=== PATIENT | female | born 1945 | race Caucasian/White ===

== ENCOUNTER → 2017-10-08 01:59 | Outpatient (CLI) | payer MEDICARE, SELFPAY ==
[2017-10-08 11:04] LABS: Abs Immature Grans 0.01 k/cumm (0.0-0.09); Absolute Basophil Count 0.03 k/cumm (0.0-0.2); Absolute Eosinophil Count 0.05 k/cumm (0.0-0.7); Absolute Lymphocyte Count 1.39 k/cumm (1.2-3.4); Absolute Monocyte Count 0.36 k/cumm (0.11-0.7); Absolute Neutrophil Count 4.27 k/cumm (1.2-6.7); Basophils % 0.5; Eosinophils % 0.8; HCT 42.7 % (36.0-46.0); HGB 13.9 g/dL (12.0-15.5); Immature Grans % 0.2; Lymphocytes % 22.7; Mean Corp. HGB Concentration 32.6 g/dL (32.0-36.0); Mean Corpuscular Volume 92.2 fL (80-95); Mean Platelet Volume 9.1 fL (8.0-11.0); Monocytes % 5.9; Neutrophils % 69.9; Platelet Count 223 x1000/uL (130-400); RBC 4.63 m/cumm (4.00-5.20); RBC Distribution Width 13.9 % (11.7-14.6); White Blood Cell Count 6.11 k/cumm (4.4-10.8)
[2017-10-08 11:15] LABS: ALT 27 U/L (12-78); AST 29 U/L (15-37); Albumin 3.6 g/dL (3.4-5.0); Alkaline Phosphatase 94 U/L (46-116); Anion Gap 10.1 mmol/L (3-11); BUN 15 mg/dL (7-18); Bilirubin, Total 0.4 mg/dL (0.2-1.0); CO2 26.9 mmol/L (21.0-32.0); CREATININE 0.87 mg/dL (0.55-1.02); Calcium 9.3 mg/dL (8.5-10.1); Chloride 102 mmol/L (98-107); Glucose 125 mg/dL (70-100); Potassium 3.9 mmol/L (3.5-5.1); Sodium 139 mmol/L (136-145); Total Protein 7.6 g/dL (6.4-8.2)
== END ==
PROVIDERS: PCP Nurse Practitioner; Visit Provider Internal Medicine Medical Oncology
DX: C50.412 Malignant neoplasm of upper-outer quadrant of left female breast (principal); Z17.0 Estrogen receptor positive status [ER+]
CPT/HCPCS: 36415; 80053; 85025

== ENCOUNTER 2018-09-17 09:27 | Outpatient (REF) | payer MEDICARE, SELFPAY ==
[2018-09-17 12:46] LABS: HCT 41.9 % (36.0-46.0); HGB 13.4 g/dL (12.0-15.5); Mean Corpuscular Hemoglobin 29.7 pg (27.0-33.0); Mean Corpuscular Volume 92.9 fL (80-95); Platelet Count 207 x1000/uL (130-400); RBC 4.51 m/cumm (4.00-5.20); RBC Distribution Width 14.1 % (11.7-14.6)
[2018-09-17 13:17] LABS: ALT 29 U/L (12-78); AST 21 U/L (15-37); Albumin 3.5 g/dL (3.4-5.0); Alkaline Phosphatase 99 U/L (46-116); Anion Gap 13.1 mmol/L (3-11); BUN 12 mg/dL (7-18); Bilirubin, Total 0.4 mg/dL (0.2-1.0); CO2 23.9 mmol/L (21.0-32.0); CREATININE 0.84 mg/dL (0.55-1.02); Calcium 9.2 mg/dL (8.5-10.1); Calculated LDL 46 mg/dL; Chloride 104 mmol/L (98-107); Cholesterol 117 mg/dL (50-200); Glucose 206 mg/dL (70-100); HDL Cholesterol 40 mg/dL (40-60); Potassium 4.2 mmol/L (3.5-5.1); Sodium 141 mmol/L (136-145); TSH (W/Ref FT4) 3.06 uIU/mL (0.36-3.74); Total Protein 6.9 g/dL (6.4-8.2); Triglyceride 158 mg/dL (30-150)
== END 2018-09-17 09:47 ==
LOC: NCHCN 09:27
PROVIDERS: PCP Nurse Practitioner; Visit Provider Nurse Practitioner
DX: E11.9 Type 2 diabetes mellitus without complications (principal); E78.5 Hyperlipidemia, unspecified; I10 Essential (primary) hypertension; E03.9 Hypothyroidism, unspecified; Z85.3 Personal history of malignant neoplasm of breast
CPT/HCPCS: 80053; 80061; 83721; 85027; 84443

== ENCOUNTER 2018-10-30 01:49 | Outpatient (CLI) | payer MEDICARE, SELFPAY ==
[2018-10-30 10:48] LABS: Abs Immature Grans 0.03 k/cumm (0.0-0.09); Absolute Basophil Count 0.02 k/cumm (0.0-0.2); Absolute Lymphocyte Count 1.31 k/cumm (1.2-3.4); Absolute Monocyte Count 0.41 k/cumm (0.11-0.7); Absolute Neutrophil Count 6.15 k/cumm (1.2-6.7); Basophils % 0.2; Eosinophils % 1.2; HCT 41.8 % (36.0-46.0); HGB 13.4 g/dL (12.0-15.5); Immature Grans % 0.4; Lymphocytes % 16.3; Mean Corp. HGB Concentration 32.1 g/dL (32.0-36.0); Mean Corpuscular Hemoglobin 29.5 pg (27.0-33.0); Mean Corpuscular Volume 91.9 fL (80-95); Mean Platelet Volume 9.2 fL (8.0-11.0); Monocytes % 5.1; Neutrophils % 76.8; Platelet Count 212 x1000/uL (130-400); RBC 4.55 m/cumm (4.00-5.20); RBC Distribution Width 14.3 % (11.7-14.6); White Blood Cell Count 8.02 k/cumm (4.4-10.8)
[2018-10-30 11:06] LABS: ALT 23 U/L (14-59); AST 21 U/L (15-37); Albumin 3.5 g/dL (3.4-5.0); Alkaline Phosphatase 94 U/L (46-116); BUN 18 mg/dL (7-18); Bilirubin, Total 0.4 mg/dL (0.2-1.0); CREATININE 0.81 mg/dL (0.55-1.02); Calcium 9.3 mg/dL (8.5-10.1); Chloride 102 mmol/L (98-107); Glucose 153 mg/dL (70-100); Potassium 3.9 mmol/L (3.5-5.1); Sodium 137 mmol/L (136-145); Total Protein 7.6 g/dL (6.4-8.2)
== END 2018-10-30 02:09 ==
PROVIDERS: PCP Nurse Practitioner; Visit Provider Internal Medicine Hematology & Oncology
DX: C50.412 Malignant neoplasm of upper-outer quadrant of left female breast (principal); Z17.0 Estrogen receptor positive status [ER+]
CPT/HCPCS: 36415; 80053; 85025

== ENCOUNTER 2018-12-05 00:47 | Outpatient (CLI) | payer MEDICARE, SELFPAY ==
--- NOTE | 2018-12-05 13:27 | DI.DEXA_ITS ---
EXAM: XR DEXA BONE DENSITY W/WO EVERARDO INDICATION: OSTEOPOROSIS WITHOUT FX, M81.0, ON AI. COMPARISON: Previous examination of June 2015 TECHNIQUE: 2D digital imaging was performed. FINDINGS: DEXA scan was performed according to the usual protocol. Findings for left hip scanning are a T-scor e of -3.2 with left femoral neck T-score of -4.1. Previous examination of June 2015 showed left hip T -score of -1.8. Lumbar spine scanning shows T-score of -1.9, previous examination of June 2015 showed lumbar T-score of -1.6. Left forearm scanning shows T-score of -4.5. Previous examination of June 2015 showed forearm T-score of -4.0. IMPRESSION: Findings consistent with osteoporosis according to the WHO criteria. No convincing compression fract ure identified on lateral vertebral scanogram, although the thoracic vertebrae are not well seen and you may wish to obtain a thoracic spine radiograph if you wish to evaluate the possibility of olga william fracture.
== END 2018-12-05 01:07 ==
PROVIDERS: PCP Nurse Practitioner; Visit Provider Internal Medicine Hematology & Oncology
DX: M81.0 Age-related osteoporosis without current pathological fracture (principal)
CPT/HCPCS: 77080

== ENCOUNTER 2019-07-24 03:24 | Outpatient (CLI) | payer MEDICARE, SELFPAY ==
[2019-07-24 09:40] LABS: Abs Immature Grans 0.02 k/cumm (0.0-0.09); Absolute Basophil Count 0.03 k/cumm (0.0-0.2); Absolute Eosinophil Count 0.12 k/cumm (0.0-0.7); Absolute Monocyte Count 0.52 k/cumm (0.11-0.7); Absolute Neutrophil Count 5.37 k/cumm (1.2-6.7); Basophils % 0.4; Eosinophils % 1.5; HCT 43.2 % (36.0-46.0); HGB 13.9 g/dL (12.0-15.5); Immature Grans % 0.3 %; Lymphocytes % 22.9; Mean Corp. HGB Concentration 32.2 g/dL (32.0-36.0); Mean Corpuscular Hemoglobin 29.9 pg (27.0-33.0); Mean Corpuscular Volume 92.9 fL (80-95); Mean Platelet Volume 9.2 fL (8.0-11.0); Monocytes % 6.6; Neutrophils % 68.3; Platelet Count 282 x1000/uL (130-400); RBC 4.65 m/cumm (4.00-5.20); RBC Distribution Width 14.3 % (11.7-14.6); White Blood Cell Count 7.86 k/cumm (4.4-10.8)
[2019-07-24 09:57] LABS: ALT 33 U/L (14-59); AST 32 U/L (15-37); Albumin 3.9 g/dL (3.4-5.0); Alkaline Phosphatase 73 U/L (46-116); Anion Gap 8.8 mmol/L (3-11); BUN 19 mg/dL (7-18); Bilirubin, Total 0.4 mg/dL (0.2-1.0); CO2 27.2 mmol/L (21.0-32.0); CREATININE 1.09 mg/dL (0.55-1.02); Chloride 103 mmol/L (98-107); Estimated GFR 48.93 (mL/min/1.73m2); Glucose 220 mg/dL (74-106); Potassium 4.1 mmol/L (3.5-5.1); Sodium 139 mmol/L (136-145)
== END 2019-07-24 03:44 ==
PROVIDERS: PCP Nurse Practitioner; Visit Provider Internal Medicine Hematology & Oncology
DX: C50.412 Malignant neoplasm of upper-outer quadrant of left female breast (principal); Z17.0 Estrogen receptor positive status [ER+]; M81.0 Age-related osteoporosis without current pathological fracture
CPT/HCPCS: 36415; 80053; 85025

== ENCOUNTER 2020-01-29 03:16 | Outpatient (CLI) | payer MEDICARE, SELFPAY ==
[2020-01-29 13:43] LABS: Abs Immature Grans 0.03 10^3/uL (0.0-0.06); Absolute Basophil Count 0.02 10^3/uL (0.0-0.2); Absolute Eosinophil Count 0.05 10^3/uL (0.0-0.7); Absolute Lymphocyte Count 1.29 10^3/uL (1.2-3.4); Absolute Monocyte Count 0.34 10^3/uL (0.1-0.8); Absolute Neutrophil Count 4.18 10^3/uL (1.2-6.7); Basophils % 0.3; Eosinophils % 0.8; HCT 41.7 % (36.0-46.0); HGB 13.6 g/dL (11.2-15.7); Immature Grans % 0.5; Lymphocytes % 21.8; MCH 30.7 pg (27.0-33.0); MCHC 32.6 % (32.0-36.0); MCV 94.1 fL (80-95); MPV 9.6 fL (8.0-11.0); Monocytes % 5.8; Neutrophils % 70.8; Nucleated RBC 0 %; Platelet Count 207 10^3/uL (130-400); RBC 4.43 10^6/uL (3.93-5.22); RDW 13.1 % (11.7-14.6); RDW-SD 45.2 fL; WBC 5.91 10^3/uL (4.4-10.8)
[2020-01-29 13:44] LABS: ALT 24 U/L (14-59); AST 36 U/L (15-37); Albumin 3.3 g/dL (3.4-5.0); Alkaline Phosphatase 84 U/L (46-116); Anion Gap 7.1 mmol/L (3-11); BUN 21 mg/dL (7-18); Bilirubin, Total 0.3 mg/dL (0.2-1.0); CO2 27.9 mmol/L (21.0-32.0); CREATININE 1.13 mg/dL (0.55-1.02); Calcium 9.3 mg/dL (8.5-10.1); Chloride 101 mmol/L (98-107); Estimated GFR 46.94 (mL/min/1.73m2); Glucose 372 mg/dL (74-106); Sodium 136 mmol/L (136-145); Total Protein 7.3 g/dL (6.4-8.2)
== END 2020-01-29 03:36 ==
PROVIDERS: PCP Nurse Practitioner; Visit Provider Internal Medicine Hematology & Oncology
DX: C50.412 Malignant neoplasm of upper-outer quadrant of left female breast (principal); Z17.0 Estrogen receptor positive status [ER+]
CPT/HCPCS: 36415; 80053; 85025

== ENCOUNTER 2020-08-05 02:56 | Outpatient (CLI) | payer OTHER, SELFPAY ==
[2020-08-05 13:06] LABS: Abs Immature Grans 0.02 10^3/uL (0.0-0.06); Absolute Basophil Count 0.03 10^3/uL (0.0-0.2); Absolute Eosinophil Count 0.04 10^3/uL (0.0-0.7); Absolute Lymphocyte Count 1.19 10^3/uL (1.2-3.4); Absolute Monocyte Count 0.32 10^3/uL (0.1-0.8); Basophils % 0.5; Eosinophils % 0.7; HCT 41.2 % (36.0-46.0); HGB 13.3 g/dL (11.2-15.7); Immature Grans % 0.3; Lymphocytes % 19.8; MCH 30.2 pg (27.0-33.0); MCHC 32.3 % (32.0-36.0); MCV 93.6 fL (80-95); MPV 9.7 fL (8.0-11.0); Monocytes % 5.3; Neutrophils % 73.4; Nucleated RBC 0 %; Platelet Count 174 10^3/uL (130-400); RDW 13.6 % (11.7-14.6); RDW-SD 47.2 fL
[2020-08-05 13:20] LABS: ALT 18 U/L (14-59); AST 22 U/L (15-37); Albumin 3.2 g/dL (3.4-5.0); Alkaline Phosphatase 77 U/L (46-116); Anion Gap 9.6 mmol/L (3-11); BUN 20 mg/dL (7-18); Bilirubin, Total 0.4 mg/dL (0.2-1.0); CO2 26.4 mmol/L (21.0-32.0); CREATININE 1.3 mg/dL (0.55-1.02); Calcium 9.1 mg/dL (8.5-10.1); Chloride 103 mmol/L (98-107); Estimated GFR 39.82 (mL/min/1.73m2); Glucose 413 mg/dL (74-106); Potassium 4.4 mmol/L (3.5-5.1); Sodium 139 mmol/L (136-145); Total Protein 7.2 g/dL (6.4-8.2)
== END 2020-08-05 02:57 | disposition home or self-care (01) ==
LOC: LBO 02:56
PROVIDERS: PCP Nurse Practitioner; Visit Provider Internal Medicine Hematology & Oncology
DX: C50.412 Malignant neoplasm of upper-outer quadrant of left female breast (principal); Z17.0 Estrogen receptor positive status [ER+]
CPT/HCPCS: 36415; 80053; 85025

== ENCOUNTER 2020-11-23 07:31 | Outpatient (REF) | payer OTHER, SELFPAY ==
[2020-11-23 14:58] LABS: Anion Gap 10.8 mmol/L (3-11); BUN 13 mg/dL (7-18); CO2 26.2 mmol/L (21.0-32.0); Calcium 8.9 mg/dL (8.5-10.1); Calculated LDL 35 mg/dL (<100); Chloride 105 mmol/L (98-107); Cholesterol 98 mg/dL (<200); Estimated GFR 53.91 (mL/min/1.73m2); Glucose 191 mg/dL (74-106); HDL Cholesterol 35 mg/dL (40-60); Potassium 3.6 mmol/L (3.5-5.1); Sodium 142 mmol/L (136-145); Triglyceride 143 mg/dL (<150)
[2020-11-23 15:09] LABS: Hemoglobin A1C 7.9 % (<5.7)
== END 2020-11-23 07:32 | disposition home or self-care (01) ==
LOC: NCHCN 07:31
PROVIDERS: PCP Nurse Practitioner; Visit Provider Nurse Practitioner
DX: E11.9 Type 2 diabetes mellitus without complications (principal); E78.5 Hyperlipidemia, unspecified; E03.9 Hypothyroidism, unspecified
CPT/HCPCS: 80048; 80061; 83036; 84443

== ENCOUNTER 2021-02-10 02:25 | Outpatient (CLI) | payer MEDICARE, SELFPAY ==
[2021-02-10 14:03] LABS: Abs Immature Grans 0.03 10^3/uL (0.0-0.06); Absolute Basophil Count 0.03 10^3/uL (0.0-0.2); Absolute Eosinophil Count 0.06 10^3/uL (0.0-0.7); Absolute Lymphocyte Count 1.91 10^3/uL (1.2-3.4); Absolute Monocyte Count 0.43 10^3/uL (0.1-0.8); Absolute Neutrophil Count 4.99 10^3/uL (1.2-6.7); Basophils % 0.4; Eosinophils % 0.8; HCT 46.6 % (36.0-46.0); HGB 14.5 g/dL (11.2-15.7); Immature Grans % 0.4; Lymphocytes % 25.6; MCH 30.4 pg (27.0-33.0); MCHC 31.1 % (32.0-36.0); MCV 97.7 fL (80-95); MPV 9.2 fL (8.0-11.0); Monocytes % 5.8; Nucleated RBC 0 %; Platelet Count 170 10^3/uL (130-400); RBC 4.77 10^6/uL (3.93-5.22); RDW 13.8 % (11.7-14.6); RDW-SD 49.9 fL; WBC 7.45 10^3/uL (4.4-10.8)
[2021-02-10 14:15] LABS: ALT 22 U/L (14-59); AST 25 U/L (15-37); Albumin 3.4 g/dL (3.4-5.0); Alkaline Phosphatase 69 U/L (46-116); Anion Gap 8.4 mmol/L (3-11); BUN 16 mg/dL (7-18); Bilirubin, Total 0.3 mg/dL (0.2-1.0); CO2 29.6 mmol/L (21.0-32.0); CREATININE 1.2 mg/dL (0.55-1.02); Chloride 104 mmol/L (98-107); Estimated GFR 43.68 (mL/min/1.73m2); Glucose 242 mg/dL (74-106); Potassium 4.2 mmol/L (3.5-5.1); Sodium 142 mmol/L (136-145); Total Protein 7.3 g/dL (6.4-8.2)
== END 2021-02-10 02:26 | disposition home or self-care (01) ==
PROVIDERS: PCP Nurse Practitioner; Visit Provider Nurse Practitioner Family
DX: C50.412 Malignant neoplasm of upper-outer quadrant of left female breast (principal); Z17.0 Estrogen receptor positive status [ER+]; Z79.810 Long term (current) use of selective estrogen receptor modulators (SERMs); M81.0 Age-related osteoporosis without current pathological fracture
CPT/HCPCS: 36415; 80053; 85025

== ENCOUNTER 2021-06-22 18:46 | Outpatient (REF) | payer MEDICARE, SELFPAY ==
[2021-06-22 13:59] LABS: HCT 46.5 % (36.0-46.0); HGB 14.7 g/dL (11.2-15.7); MCH 30.6 pg (27.0-33.0); MCHC 31.6 % (32.0-36.0); MCV 96.7 fL (80-95); MPV 9.7 fL (8.0-11.0); Platelet Count 179 10^3/uL (130-400); RBC 4.81 10^6/uL (3.93-5.22); RDW 13.9 % (11.7-14.6); WBC 6.51 10^3/uL (4.4-10.8)
[2021-06-22 14:38] LABS: ALT 28 U/L (14-59); AST 29 U/L (15-37); Albumin 3.6 g/dL (3.4-5.0); Alkaline Phosphatase 61 U/L (46-116); Anion Gap 8.4 mmol/L (3-11); BUN 20 mg/dL (7-18); Bilirubin, Total 0.5 mg/dL (0.2-1.0); CO2 25.6 mmol/L (21.0-32.0); Calcium 9.7 mg/dL (8.5-10.1); Chloride 104 mmol/L (98-107); Estimated GFR 53.76 (mL/min/1.73m2); Glucose 210 mg/dL (74-106); Potassium 4.3 mmol/L (3.5-5.1); Sodium 138 mmol/L (136-145); TSH 2.02 uIU/mL (0.36-3.74); Total Protein 6.8 g/dL (6.4-8.2)
== END 2021-06-22 18:47 | disposition home or self-care (01) ==
LOC: NCHCN 18:46
PROVIDERS: PCP Nurse Practitioner; Visit Provider Nurse Practitioner Family
DX: E11.9 Type 2 diabetes mellitus without complications (principal); I10 Essential (primary) hypertension; E03.9 Hypothyroidism, unspecified
CPT/HCPCS: 80053; 85027; 84443

== ENCOUNTER 2021-08-11 03:52 | Outpatient (CLI) | payer MEDICARE, SELFPAY ==
[2021-08-11 09:46] LABS: Abs Immature Grans 0.03 10^3/uL (0.0-0.06); Absolute Basophil Count 0.03 10^3/uL (0.0-0.2); Absolute Eosinophil Count 0.05 10^3/uL (0.0-0.7); Absolute Lymphocyte Count 1.17 10^3/uL (1.2-3.4); Absolute Monocyte Count 0.39 10^3/uL (0.1-0.8); Basophils % 0.4; Eosinophils % 0.6; HCT 48.4 % (36.0-46.0); HGB 15.8 g/dL (11.2-15.7); Immature Grans % 0.4; Lymphocytes % 15.1; MCH 30.9 pg (27.0-33.0); MCHC 32.6 % (32.0-36.0); MCV 95 fL (80-95); MPV 9.9 fL (8.0-11.0); Neutrophils % 78.5; Platelet Count 167 10^3/uL (130-400); RBC 5.12 10^6/uL (3.93-5.22); RDW 13.8 % (11.7-14.6); RDW-SD 48.4 fL; WBC 7.77 10^3/uL (4.4-10.8)
[2021-08-11 10:42] LABS: ALT 20 U/L (14-59); AST 22 U/L (15-37); Albumin 3.7 g/dL (3.4-5.0); Alkaline Phosphatase 56 U/L (46-116); Anion Gap 11.3 mmol/L (3-11); BUN 19 mg/dL (7-18); Bilirubin, Total 0.5 mg/dL (0.2-1.0); CO2 26.7 mmol/L (21.0-32.0); CREATININE 1.1 mg/dL (0.55-1.02); Calcium 9.8 mg/dL (8.5-10.1); Chloride 105 mmol/L (98-107); Estimated GFR 48.16 (mL/min/1.73m2); Glucose 201 mg/dL (74-106); Potassium 4.3 mmol/L (3.5-5.1); Sodium 143 mmol/L (136-145); Total Protein 7.6 g/dL (6.4-8.2)
== END 2021-08-11 03:53 | disposition home or self-care (01) ==
PROVIDERS: PCP Nurse Practitioner; Visit Provider Nurse Practitioner Family
DX: C50.412 Malignant neoplasm of upper-outer quadrant of left female breast (principal); Z17.0 Estrogen receptor positive status [ER+]; Z79.810 Long term (current) use of selective estrogen receptor modulators (SERMs); M81.0 Age-related osteoporosis without current pathological fracture
CPT/HCPCS: 36415; 80053; 85025

== ENCOUNTER 2022-06-19 10:48 | Outpatient (REF) | payer MEDICARE, SELFPAY ==
[2022-06-19 14:40] LABS: HCT 46.9 % (36.0-46.0); HGB 15.1 g/dL (11.2-15.7); MCH 30.6 pg (27.0-33.0); MCHC 32.2 % (32.0-36.0); MCV 95 fL (80-95); Platelet Count 174 10^3/uL (130-400); RBC 4.94 10^6/uL (3.93-5.22); RDW 13.4 % (11.7-14.6); WBC 6.04 10^3/uL (4.4-10.8)
[2022-06-19 15:24] LABS: Hemoglobin A1C 8.1 % (<5.7)
[2022-06-19 15:44] LABS: ALT 21 U/L (14-59); AST 18 U/L (15-37); Albumin 3.5 g/dL (3.4-5.0); Alkaline Phosphatase 72 U/L (46-116); Anion Gap 10.5 mmol/L (3-11); BUN 20 mg/dL (7-18); Bilirubin, Total 0.3 mg/dL (0.2-1.0); CO2 28.5 mmol/L (21.0-32.0); CREATININE 1.2 mg/dL (0.55-1.02); Calcium 9.6 mg/dL (8.5-10.1); Calculated LDL 41 mg/dL (<100); Chloride 103 mmol/L (98-107); Cholesterol 106 mg/dL (<200); Estimated GFR 46.33 (mL/min/1.73m2); Glucose 232 mg/dL (74-106); HDL Cholesterol 36 mg/dL (40-60); Potassium 4.2 mmol/L (3.5-5.1); Sodium 142 mmol/L (136-145); TSH (W/Ref FT4) 4.04 uIU/mL (0.36-3.74); Triglyceride 149 mg/dL (<150)
[2022-06-19 16:20] LABS: FREE T4 1.13 ng/dL (0.76-1.46)
== END 2022-06-19 10:49 | disposition home or self-care (01) ==
LOC: NCHCN 10:48
PROVIDERS: PCP Nurse Practitioner; Visit Provider Nurse Practitioner Family
DX: E11.9 Type 2 diabetes mellitus without complications (principal); E78.5 Hyperlipidemia, unspecified; E03.9 Hypothyroidism, unspecified; I10 Essential (primary) hypertension
CPT/HCPCS: 80053; 80061; 85027; 83036; 84439; 84443

== ENCOUNTER 2023-06-21 20:33 | Outpatient (REF) | payer MEDICARE, SELFPAY ==
[2023-06-21 19:08] LABS: ALT 22 U/L (14-59); AST 17 U/L (15-37); Albumin 3.8 g/dL (3.4-5.0); Alkaline Phosphatase 110 U/L (46-116); Anion Gap 12.4 mmol/L (3-11); BUN 17 mg/dL (7-18); Bilirubin, Total 0.6 mg/dL (0.2-1.0); CO2 26.6 mmol/L (21.0-32.0); Calcium 9.4 mg/dL (8.5-10.1); Chloride 103 mmol/L (98-107); Estimated GFR 57.31 (mL/min/1.73m2); Glucose 207 mg/dL (74-106); Sodium 142 mmol/L (136-145); TSH (W/Ref FT4) 2.23 uIU/mL (0.36-3.74); Total Protein 7.4 g/dL (6.4-8.2)
[2023-06-21 20:43] LABS: Calculated LDL 56 mg/dL (<100); Cholesterol 147 mg/dL (<200); HDL Cholesterol 49 mg/dL (40-60); Triglyceride 212 mg/dL (<150)
== END 2023-06-21 20:34 | disposition home or self-care (01) ==
LOC: NCHCN 20:33
PROVIDERS: Visit Provider Nurse Practitioner Family
DX: E11.9 Type 2 diabetes mellitus without complications (principal); E03.9 Hypothyroidism, unspecified; E78.5 Hyperlipidemia, unspecified
CPT/HCPCS: 80053; 80061; 84443